=== PATIENT | male | born 1950 | race Caucasian/White ===

== ENCOUNTER 2017-09-23 05:46 | Emergency (ER) | payer OTHER ==
[~2017-09-23] VITALS: Ht 170.2 cm; Wt 100.3 kg
[~2017-09-23 05:46] MED LIST: HYDROCODON-ACE1 EAC7 PO; LEVAQUIN500 MG PO; LEVAQUIN750 MG PO; LEVETIRACETAM500 MG PO
[2017-09-23 06:57] LABS: BASOPHIL (%) 0.4 % (0-1); EOSINOPHIL (%) 0.4 % (0-5); HEMATOCRIT 44.5 % (38.0-50.0); HEMOGLOBIN 14.6 G/DL (12.5-16.6); IMMATURE GRANULOCYTE (%) 0.4 % (0.0-0.7); LYMPHOCYTE (%) 11.9 % (15-42); LYMPHOCYTE COUNT 0.6 K/uL (1.0-2.8); MCH 30.4 PG (29.0-34.0); MCHC 32.8 G/DL (30.0-36.0); MCV 92.7 FL (86-99); MONOCYTE (%) 11.3 % (3-12); MONOCYTE COUNT 0.6 K/uL (0-0.8); NEUTROPHIL (%) 75.6 % (45-76); NEUTROPHIL COUNT 3.9 K/uL (1.8-6.4); PLATELET COUNT 98 K/uL (156-360); RBC DIS.WIDTH-CV 13.5 % (11.8-14.6); RBC DIS.WIDTH-SD 46.1 % (39-53); WHITE BLOOD COUNT 5.1 K/uL (4.1-10.2)
[2017-09-23 07:24] LABS: CHLORIDE 108 MEQ/L (99-109); CREATININE 0.9 MG/DL (0.6-1.3); GFR ESTIMATE (CALCULATED) > 59 mL/min/ (58.99-99999); GLUCOSE 134 mg/dL (70-99); POTASSIUM 4.6 MEQ/L (3.7-5.4); SODIUM 141 MEQ/L (136-147); UREA NITROGEN (BUN) 18 mg/dL (9-23)
[2017-09-23 07:35] LABS: TROP-I INTERPRETATION NEGATIVE; TROPONIN-I 0.02 ng/mL (0.0-0.30)
[2017-09-23 09:43] LABS: TROP-I INTERPRETATION NEGATIVE; TROPONIN-I 0.03 ng/mL (0.0-0.30)
[2017-09-23] MEDS ORDERED: K-DUR20 MEQ PO (09:56)
[2017-09-23] MEDS ORDERED: PREDNISONE50 MG PO (09:56)
[2017-09-23] MEDS ORDERED: ZITHROMAX Z-PA250 MG PO (09:56)
[2017-09-23] MEDS ORDERED: VENTOLIN HFA18 GM IH (09:56)
[2017-09-23] MEDS ORDERED: LASIX20 MG PO (09:56)
[2017-09-23 10:05] VITALS: BP 126/70
== END 2017-09-23 10:16 | disposition home or self-care (01) ==
LOC: EME 05:46
PROVIDERS: Emergency Medicine
DX: J20.9 Acute bronchitis, unspecified (principal); M79.89 Other specified soft tissue disorders; R00.0 Tachycardia, unspecified; R94.31 Abnormal electrocardiogram [ECG] [EKG]; R56.9 Unspecified convulsions; Z87.891 Personal history of nicotine dependence; Z98.890 Other specified postprocedural states; Z88.0 Allergy status to penicillin
CPT/HCPCS: 71045; 80048; 83880; 84484; 85025; 93005; 93970; 94640; 94640 76; 99281; 99284; J7512

== ENCOUNTER 2017-09-28 11:30 | Observation (INO) | payer OTHER ==
[~2017-09-28] VITALS: Ht 170.2 cm; Wt 102.6 kg
[~2017-09-28 11:30] MED LIST changes: +K-DUR20 MEQ PO; +KEPPRA250 MG PO; +LASIX20 MG PO; -LEVETIRACETAM500 MG PO; +PREDNISONE50 MG PO; +VENTOLIN HFA18 GM IH; +ZITHROMAX Z-PA250 MG PO
[2017-09-28 12:27] LABS: ALBUMIN 3.6 g/dL (3.2-4.8)
[2017-09-28 12:28] LABS: CHLORIDE 104 mEq/L (99-109); POTASSIUM 4.2 mEq/L (3.7-5.4); SODIUM 138 mEq/L (136-147)
[2017-09-28 12:29] LABS: HEMOGLOBIN 14.8 G/DL (12.5-16.6); MCH 30.5 PG (29.0-34.0); MCHC 34.4 G/DL (30.0-36.0); MCV 88.7 FL (86-99); PLATELET COUNT 162 K/uL (156-360); RBC DIS.WIDTH-SD 42.1 % (39-53); RED BLOOD COUNT 4.85 M/uL (4.00-5.50)
[2017-09-28 12:30] LABS: GLUCOSE 106 mg/dL (70-99); TOTAL PROTEIN 6.2 g/dL (6.4-8.3)
[2017-09-28 12:32] LABS: TOTAL BILIRUBIN 2.3 mg/dL (0.0-1.0)
[2017-09-28 12:33] LABS: ALKALINE PHOSPHATASE 62 IU/L (3-129)
[2017-09-28 12:34] LABS: CREATININE 0.9 mg/dL (0.6-1.3); GFR ESTIMATE (CALCULATED) > 59 mL/min/ (58.99-99999)
[2017-09-28 12:35] LABS: AST (GOT) 31 IU/L (2-34)
[2017-09-28 12:37] LABS: ALT (GPT) 43 IU/L (3-49); LIPASE 16 U/L (1.0-51.0)
[2017-09-28 12:38] LABS: TROP-I INTERPRETATION NEGATIVE; TROPONIN-I 0.01 ng/mL (0.0-0.30)
[2017-09-28 12:45] LABS: UREA NITROGEN (BUN) 34 mg/dL (9-23)
[2017-09-28] MEDS ORDERED: ADULT ASPIRIN R81 MG PO (14:47)
[2017-09-28 16:11] VITALS: BP 156/81
[2017-09-28 18:52] LABS: TROP-I INTERPRETATION NEGATIVE; TROPONIN-I 0.02 ng/mL (0.0-0.30)
[2017-09-28 19:36] VITALS: BP 132/70
[2017-09-28 23:39] VITALS: BP 121/63
[2017-09-29 00:59] LABS: TROP-I INTERPRETATION NEGATIVE; TROPONIN-I 0.02 ng/mL (0.0-0.30)
[2017-09-29 06:07] LABS: TROP-I INTERPRETATION NEGATIVE; TROPONIN-I 0.02 ng/mL (0.0-0.30)
[2017-09-29 06:56] VITALS: BP 123/68
[2017-09-29] MEDS ORDERED: LOSARTAN POTASS25 MG PO (09:51)
[2017-09-29] MEDS ORDERED: SPIRONOLACTONE25 MG PO (09:51)
[2017-09-29] MEDS ORDERED: FUROSEMIDE20 MG PO (09:51)
[2017-09-29] MEDS ORDERED: LEVAQUIN750 MG PO (09:51)
[2017-09-29 11:55] VITALS: BP 120/65
[2017-09-29 16:00] VITALS: BP 121/70
[2017-09-29 19:25] VITALS: BP 110/59
[2017-09-29 23:41] VITALS: BP 126/68
[2017-09-30 03:42] VITALS: BP 139/70
[2017-09-30 05:55] LABS: CREATININE 1.1 MG/DL (0.6-1.3); GFR ESTIMATE (CALCULATED) > 59 mL/min/ (58.99-99999); GLUCOSE 105 mg/dL (70-99); POTASSIUM 3.9 MEQ/L (3.7-5.4); SODIUM 135 MEQ/L (136-147); UREA NITROGEN (BUN) 29 mg/dL (9-23)
[2017-09-30 06:22] LABS: CHLORIDE 97 MEQ/L (99-109)
[2017-09-30 07:51] VITALS: BP 121/63
== END 2017-09-30 14:25 | disposition home or self-care (01) ==
LOC: EME 11:30 → EDOF 14:58 → ENRESERV 14:59 → 4SOUTH 15:47
PROVIDERS: Hospitalist; Nurse Practitioner Family; Physician Assistant Medical
DX: J18.9 Pneumonia, unspecified organism (principal); I11.0 Hypertensive heart disease with heart failure; I50.33 Acute on chronic diastolic (congestive) heart failure; R60.0 Localized edema; G40.909 Epilepsy, unspecified, not intractable, without status epilepticus; G89.29 Other chronic pain; R10.11 Right upper quadrant pain; I34.0 Nonrheumatic mitral (valve) insufficiency; I27.29 Other secondary pulmonary hypertension; I25.10 Atherosclerotic heart disease of native coronary artery without angina pectoris; R91.1 Solitary pulmonary nodule; Z79.82 Long term (current) use of aspirin; Z80.3 Family history of malignant neoplasm of breast; Z88.0 Allergy status to penicillin
CPT/HCPCS: 71046; 71275; 76705; 80048; 80053; 83690; 83880; 84484; 85027; 85379; 93005; 93970; G0378; J1650; J1940; J1956